=== PATIENT | male | born 1980 | race African-American/Black ===

== ENCOUNTER → 2023-06-23 16:44 | Outpatient (CLI) | payer OTHER, SELFPAY ==
--- NOTE | 2023-06-23 16:48 | DI.MRI.S_ITS ---
PROCEDURE: MR KNEE RT WO CON INDICATIONS: PAIN IN RT KNEE TECHNIQUE: Noncontrast sagittal PD fast spin echo and T2 fast spin echo with fat saturation, sagittal 3-D FLASH with fat saturation; coronal T1 spin echo and PD fast spin echo with fat saturation, and axial PD fast spin echo with fat saturation through the knee. COMPARISON: None. FINDINGS: Image quality: Excellent. Menisci: There is a horizontally oriented longitudinal tear in the posterior horn and body of the medial meniscus involving the superior articular surface. Degenerative signal is also present the medial meniscus. The lateral meniscus is intact. The meniscal root ligaments also appear intact. Cruciate ligaments: The anterior and posterior cruciate ligaments appear intact. Medial structures: The medial collateral ligament appears intact. The semimembranosus tendon insertions and meniscocapsular junction appear intact. Visualized portions of the pes anserinus tendons appear intact without associated bursal fluid collections. Lateral structures: The lateral collateral ligament, long and short heads of the biceps femoris tendon appear intact. The popliteus tendon appears intact. Iliotibial band appears normal. Anterior structures: The quadriceps and patellar tendons appear intact. There is mild lateral shift of the patella. No femoral trochlear dysplasia or ventral trochlear prominence. No edema in the infrapatellar fat pad. Bones and cartilage: No bone marrow contusions or fractures. There is mild tricompartmental osteophytosis. Mild cartilage thinning demonstrated in the medial compartment with mild superficial chondral fraying. Mild chondral heterogeneity in the lateral compartment. There is mild cartilage thinning in the patellofemoral compartment laterally with mild superficial chondral fissuring along the trochlea. Joint space: There is a moderate joint effusion. No Teran's cyst. Normal appearing synovial plicae are incidentally noted. IMPRESSION: 1. Degenerative signal in the medial meniscus with tearing in the posterior horn and body as described. 2. Moderate joint effusion. 3. Mild chondral degeneration. Dictated by: Maurice Jordan M.D. on 06/24/2023 at 1:20 Approved by: Maurice Jordan M.D. on 06/24/2023 at 1:24
== END ==
PROVIDERS: Referring Provider Physician Assistant; Visit Provider Physician Assistant
DX: M23.221 Derangement of posterior horn of medial meniscus due to old tear or injury, right knee (principal); M25.461 Effusion, right knee; M25.569 Pain in unspecified knee
CPT/HCPCS: 73721